=== PATIENT | female | born 1990 | race Caucasian/White ===

== ENCOUNTER 2023-06-12 08:13 | Outpatient (CLI) | payer OTHER | END 2023-06-12 08:14 | disposition home or self-care (01) | LOC: BICMAMMO 08:13 | PROVIDERS: ATTEND Registered Nurse | DX: N64.4 Mastodynia (principal); N64.52 Nipple discharge | CPT/HCPCS: 77066; G0279 ==

== ENCOUNTER 2024-02-25 19:33 | Inpatient (IN) | payer OTHER ==
[2024-02-25] MEDS: Morphine 4 MG/ML VIAL SLOW IVP PRN (22:09)
[2024-02-25] MEDS: Ondansetron PF 4 MG/2 ML Vial IVP PRN (22:39)
[2024-02-25 23:44] VITALS: BMI 28.3
[2024-02-25] MEDS: Prochlorperazine Edisylate 10 MG in Sodium Chloride 0.9% 50 ML IVPB PRN (23:53)
[2024-02-26 04:59] LABS: Hematocrit 34.3 % (36.0-47.0); Hemoglobin 11.4 g/dL (12.0-16.0); Mean Corpuscular HGB CONC 33.2 g/dL (32.0-36.0); Mean Corpuscular Hemoglobin 30.2 pg (27.0-31.0); Mean Platelet Volume 9.5 fL (7.4-10.4); Platelet Count 258 10x3/uL (130-400); RBC Distribution Width 12.9 % (11.5-14.5); Red Blood Cell (RBC) Count 3.77 mill/uL (4.20-5.40)
[2024-02-26 05:10] LABS: Anion Gap 12 mmol/L (10-20); BUN (Urea Nitrogen) 7 mg/dL (7.0-18.7); Calc. Creatinine Clearance 122 mL/min (70-130); Calcium 8.7 mg/dL (7.8-10.44); Carbon Dioxide 22 mmol/L (22-29); Chloride 111 mmol/L (98-107); Estimated GFR 112; Glucose 93 mg/dL (70-105); Potassium 3.3 mmol/L (3.5-5.1); Sodium 142 mmol/L (136-145)
[2024-02-26 06:12] LABS: Lymphocytes 38 % (21-51); Monocytes 7 % (0-10); Myelocyte 1 % (0-0); Neutrophil 51 % (42-75); Platelet Adequacy Comment Platelets Normal; RBC Morphology Within Normal Limits; Smudge Cells 12.1 %
[2024-02-26] MEDS: Potassium Chloride 20 MEQ TAB PO SCH (06:40)
[2024-02-26] MEDS: Lorazepam 2 MG/ML VIAL SLOW IVP PRN (06:41)
[2024-02-26] MEDS ORDERED: Magnevist 469MG/ML 20 ML VIAL ONE ×2 (11:31)
[2024-02-26] MEDS: diphenhydrAMINE 50 MG/ML VIAL IVP SCH (12:59)
[2024-02-26] MEDS: Ketorolac Tromethamine 30 MG (1 mL) VIAL IVP PRN (12:59)
[2024-02-26] MEDS: Prochlorperazine Edisylate 10 MG in Sodium Chloride 0.9% 50 ML IVPB SCH (13:50)
[2024-02-27 04:33] LABS: Hematocrit 35.7 % (36.0-47.0); Hemoglobin 11.7 g/dL (12.0-16.0); Mean Corpuscular HGB CONC 32.8 g/dL (32.0-36.0); Mean Corpuscular Hemoglobin 30.4 pg (27.0-31.0); Mean Corpuscular Volume 92.7 fL (78.0-98.0); Mean Platelet Volume 9.7 fL (7.4-10.4); Platelet Count 243 10x3/uL (130-400); RBC Distribution Width 12.9 % (11.5-14.5); Red Blood Cell (RBC) Count 3.85 mill/uL (4.20-5.40)
[2024-02-27 04:49] LABS: Anion Gap 12 mmol/L (10-20); BUN (Urea Nitrogen) 6 mg/dL (7.0-18.7); Calc. Creatinine Clearance 122 mL/min (70-130); Calcium 8.4 mg/dL (7.8-10.44); Carbon Dioxide 24 mmol/L (22-29); Chloride 109 mmol/L (98-107); Estimated GFR 112; Glucose 81 mg/dL (70-105); Potassium 4.1 mmol/L (3.5-5.1); Sodium 141 mmol/L (136-145)
[2024-02-27 05:04] LABS: Band 4 % (5-11); Eosinophils 4 % (0-10); Lymphocytes 40 % (21-51); Monocytes 8 % (0-10); Neutrophil 43 % (42-75); Platelet Adequacy Comment Platelets Normal
[2024-02-27 08:08] VITALS: BP 99/67; TEMP 98.2
[2024-02-27] MEDS ORDERED: SUMAtriptan Succinate 6 MG/0.5 ML VIAL SC SCH (10:30)
== END 2024-02-27 11:20 | disposition home or self-care (01) | DRG 81 ==
LOC: INTOOBSV 19:33 → 2SE 19:33 → OBSVTOIN 02-27 07:51
PROVIDERS: ADMIT Family Medicine; ATTEND Internal Medicine
DX: G93.5 Compression of brain (principal); I67.1 Cerebral aneurysm, nonruptured; H53.8 Other visual disturbances; F17.210 Nicotine dependence, cigarettes, uncomplicated; R11.2 Nausea with vomiting, unspecified; R20.2 Paresthesia of skin; Z98.890 Other specified postprocedural states; Z98.891 History of uterine scar from previous surgery; Z90.49 Acquired absence of other specified parts of digestive tract; Z90.710 Acquired absence of both cervix and uterus
CPT/HCPCS: 36415; 70553; 72156; 80048; 85025; 96374; 96375; 96376; A9579; G0378; J0780; J1200; J1885; J2060; J2270; J2405